=== PATIENT | male | born 1985 ===

== ENCOUNTER → 2016-11-06 | Outpatient (CLI) | payer OTHER ==
[~2016-11-06] MED LIST: OPTIRAY 320 IV PRN
--- NOTE | 2016-11-06 13:39 | DIAGNOSTIC IMAGING REPORT ---
CT OF THE NECK WITH CONTRAST CLINICAL HISTORY: Supraclavicular lymphadenopathy. COMPARISON STUDY: No previous studies for comparison. TECHNIQUE: Axial images of the neck were obtained following intravenous injection of 93 cc Optiray 320 IV. Sagittal and coronal reconstructions were viewed on an independent 3-D workstation. FINDINGS: No enlarged cervical lymph nodes are present. Lung apices are clear. Visualized skeletal structures are unremarkable. No mucosal lesions are identified although these may be occult by CT. The parotid and submandibular glands are normal. Visualized portions of the airway are patent. Note is made of asymmetric dilatation of a sylvian branch of the left middle cerebral artery. No additional abnormalities are identified within visualized portions of the intracranial contents. Orbits are unremarkable. Mastoid air cells and sinuses are clear. IMPRESSION: 1. No cervical lymphadenopathy. 2. Asymmetric dilatation of a sylvian branch of the left middle cerebral artery. While this could reflect physiologic variation, the findings raise the possibility of a vascular abnormality such as an arteriovenous fistula/malformation located above the upper aspect of this study which only visualizes to the level of the lateral ventricles. An MRI of the brain with and without contrast and MRA of the intracranial circulation is recommended to exclude a vascular malformation. Electronically signed by: Zeke Kyle M.D. 11/06/2016 1:38 PM Dictated Date/Time: 11/06/2016 1:03 PM
== END | disposition home or self-care (01) ==
LOC: C.CTS 12:31
PROVIDERS: ATTEND Internal Medicine
DX: R59.0 Localized enlarged lymph nodes (principal)

== ENCOUNTER → 2016-11-25 | Outpatient (CLI) | payer OTHER ==
[~2016-11-25] MED LIST changes: +GADAVIST IV PRN; -OPTIRAY 320 IV PRN
--- NOTE | 2016-11-25 14:01 | DIAGNOSTIC IMAGING REPORT ---
MRA HEAD WITHOUT CONTRAST HISTORY: Abnormal CT soft tissue neck R93.8 TECHNIQUE: 3-D [id number] MRA of the brain was performed without contrast. COMPARISON STUDY: CT soft tissue neck 11/06/2016 FINDINGS: Visualized intracranial internal carotid arteries, distal vertebral arteries, and basilar artery are widely patent. There is no significant stenosis, occlusion, or aneurysm seen within the bilateral ACAs, MCAs, or road design engineer. Note is made of a arterial venous connection at the lateral level of the left middle cerebral artery in close proximity to the genu of the sylvian fissure. There is a very large draining vein extending in a posterior fashion adjacent to the dural surface. It becomes quite serpiginous and ectatic at the posterior left parietal region with potential drain veins extending to the posterior margin of the straight sinus. Its exact anatomy in relation to the straight sinus and the sagittal sinus is not confirmed on this exam. There is no evidence for thrombosis. All remaining arterial structures of the brain are unremarkable. There is no evidence for aneurysmal distention. A true vascular malformation at the confluence of the a large draining vein and left middle cerebral artery is now identified. IMPRESSION: 1. 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 2. At the posterior parietal region the vessel becomes engorged and distended as well as tortuous and potentially drains to a region near the confluence of the straight and superior sagittal sinuses. 3. No evidence for thrombosis. 4. At the juncture of the large draining vein and left middle cerebral artery there does not appear to be a major vascular malformation other than the direct connection to the large vein itself. No additional anomalies are appreciated. The above report was generated using voice recognition software. It may contain grammatical, syntax or spelling errors. Electronically signed by: Ryne Dobbins M.D. 11/25/2016 2:00 PM Dictated Date/Time: 11/25/2016 1:44 PM
--- NOTE | 2016-11-25 14:40 | DIAGNOSTIC IMAGING REPORT ---
BRAIN COMBO CLINICAL HISTORY: R93.8 vascular malformation COMPARISON STUDY: MRA brain same date. CT soft tissue neck 11/06/2016 TECHNIQUE: Utilizing a 1.5 Vandana magnet and dedicated coil, multiplanar, multiecho imaging of the brain was performed pre and postcontrast administration. IV administration of 7.2 mL of Gadavist contrast was uneventful. FINDINGS: Diffusion-weighted images show no evidence for an acute ischemic event. Postcontrast images show trace amount of enhancement peripherally about the posterior parietal serpiginous venous malformation of the posterior left parietal lobe. The large venous malformation originates at the left middle cerebral artery, extending posteriorly along the dural surface. It again shows a separate serpiginous dilated tangle of venous structures within the left posterior parietal lobe. There is again suggestion of a potential venous connection to the juncture of the straight and sagittal sinuses. There is no mass effect. There is no midline shift. Ventricular system is midline. The internal auditory canals are symmetric. Sella and parasellar regions are unremarkable. IMPRESSION: 1. Large vascular malformation, primarily venous, as described in the patient's prior MRA 2. No significant mass effect 3. Study is a brain is otherwise negative. The above report was generated using voice recognition software. It may contain grammatical, syntax or spelling errors. Electronically signed by: Ryne Dobbins M.D. 11/25/2016 2:39 PM Dictated Date/Time: 11/25/2016 2:20 PM
== END | disposition home or self-care (01) ==
LOC: C.MRI 13:06
PROVIDERS: ATTEND Internal Medicine
DX: R93.8 Abnormal findings on diagnostic imaging of other specified body structures (principal); Q28.3 Other malformations of cerebral vessels